=== PATIENT | female | born 1965 | race Caucasian/White ===

== ENCOUNTER 2016-11-21 21:30 | Emergency (ER) | payer MEDICARE, BC ==
[2016-11-21 22:10] LABS: ABSOLUTE BASOPHILS # (AUTO) 0.1 10^3/uL (0.0-0.2); ABSOLUTE EOSINOPHILS # (AUTO) 0.1 10^3/uL (0.0-0.6); ABSOLUTE LYMPHOCYTES (AUTO) 2.2 10^3/uL (0.5-4.7); ABSOLUTE NEUT (AUTO) 3.6 10^3/uL (1.7-8.2); BASOPHILS % (AUTO) 0.9 % (0-2); EOSINOPHILS % (AUTO) 1.9 % (0-6); HEMATOCRIT 40.7 % (36.0-47.0); HEMOGLOBIN 13.8 g/dL (12.0-15.5); HGB HCT DIFFERENCE 0.7; LYMPHOCYTES % (AUTO) 31.4 % (13-45); MEAN CORPUSCULAR HEMOGLOBIN 30.1 pg (27.0-33.4); MEAN CORPUSCULAR HGB CONC 33.8 g/dL (32.0-36.0); MEAN CORPUSCULAR VOLUME 89 fl (80-97); MONOCYTES % (AUTO) 13.9 % (3-13); RED BLOOD COUNT 4.57 10^6/uL (3.72-5.28); RED CELL DISTRIBUTION WIDTH 12.7 % (11.5-14.0); SEGMENTED NEUTROPHILS % (AUTO) 51.9 % (42-78)
[2016-11-21] MEDS ORDERED: METOCLOPRAMIDE HCL INJ/PF 10 MG/2 ML SDV IV ONE (22:11)
[2016-11-21] MEDS ORDERED: NORMAL SALINE 1000 ML 1,000 ML IV ONE (22:12)
[2016-11-21] MEDS ORDERED: DIAZEPAM INJ 10 MG/2 ML DISP.SYRIN IV ONE (22:12)
[2016-11-21 22:22] LABS: AMORPHOUS SEDIMENT,URINE TRACE /HPF; APPEARANCE,URINE CLOUDY; BILIRUBIN,URINE NEGATIVE (NEGATIVE); GLUCOSE, URINE NEGATIVE (NEGATIVE); KETONES,URINE TRACE mg/dL (NEGATIVE); LEUKOCYTE ESTERASE,URINE NEGATIVE (NEGATIVE); NITRITE,URINE NEGATIVE (NEGATIVE); PROTEIN,URINE NEGATIVE (NEGATIVE); URINE SPECIFIC GRAVITY 1.016; UROBILINOGEN,URINE NEGATIVE mg/dL (<2.0)
[2016-11-21 22:33] LABS: ALANINE AMINOTRANSFERASE 19 U/L (9-52); ALBUMIN 3.7 g/dL (3.5-5.0); ALKALINE PHOSPHATASE 69 U/L (38-126); ANION GAP 12 (5-19); ASPARTATE AMINO TRANSFERASE 26 U/L (14-36); BILIRUBIN,TOTAL 0.3 mg/dL (0.2-1.3); BLOOD UREA NITROGEN 17 mg/dL (7-20); CALCIUM 9.3 mg/dL (8.4-10.2); CARBON DIOXIDE 27 mmol/L (22-30); CHLORIDE 100 mmol/L (98-107); CREATININE RESULT 0.76 mg/dL (0.52-1.25); GLUCOSE 139 mg/dL (75-110); LIPASE 38.9 U/L (23-300); POTASSIUM 3.2 mmol/L (3.6-5.0); SODIUM 138.6 mmol/L (137-145); TOTAL PROTEIN 6.4 g/dL (6.3-8.2)
--- NOTE | 2016-11-22 00:02 | ER Document Report ---
ED General - General Chief Complaint: Nausea/Vomiting Stated Complaint: NAUSEA Notes: Patient is 51-year-old female presents with complaint of severe vertigo with nausea and vomiting. Today they want to watch movie. It may relate no illicits available in the front row. She says she feels as if the movie in the front row made vertigo suddenly becomes severe. She states some ice or vomiting. No headache. No chest pain. No shortness of breath. No abdominal pain. No fevers. No recent infections. She has a long history of recurrent vertigo. She has had workup in the past including imaging. TRAVEL OUTSIDE OF THE [place] IN LAST 30 DAYS: No - Related Data Allergies/Adverse Reactions: Penicillins Allergy (Severe, Verified 03/26/16 08:00) Hives prochlorperazine edisylate [From Compazine] Allergy (Severe, Verified 03/26/16 08:00) Hives sulfamethoxazole [From Septra] Allergy (Severe, Verified 03/26/16 08:00) Hives trimethoprim [From Septra] Allergy (Severe, Verified 03/26/16 08:00) Hives Past Medical History - Social History Smoking Status: Never Smoker Frequency of alcohol use: None Drug Abuse: None Family History: Reviewed & Not Pertinent - Past Medical History Cardiac Medical History: Reports: Hx Hypercholesterolemia, Hx Hypertension Denies: Hx Coronary Artery Disease, Hx Heart Attack Pulmonary Medical History: Denies: Hx Asthma, Hx Bronchitis, Hx COPD, Hx Pneumonia Neurological Medical History: Denies: Hx Cerebrovascular Accident, Hx Seizures Musculoskeltal Medical History: Denies Hx Arthritis Psychiatric Medical History: Reports: Hx Depression Past Surgical History: Reports: Hx Hysterectomy, Hx Pacemaker - Immunizations Hx Diphtheria, Pertussis, Tetanus Vaccination: Yes Hx Pneumococcal Vaccination: 11/05/09 Review of Systems - Review of Systems Notes: My Normal Review Basic REVIEW OF SYSTEMS: CONSTITUTIONAL : Denies fever, chills, or sweats. Denies recent illness. EENT: Denies eye, ear, throat, or mouth pain or symptoms. Denies nasal or sinus congestion. CARDIOVASCULAR: Denies chest pain. RESPIRATORY: Denies cough, cold, or chest congestion. Denies shortness of breath, difficulty breathing, or wheezing. GASTROINTESTINAL: Denies abdominal pain. Recurrent vomiting. Denies constipation. Last BM: MUSCULOSKELETAL: Denies neck or back pain or joint pain or swelling. SKIN: Denies rash or skin lesions.. NEUROLOGICAL: Denies altered mental status or loss of consciousness. Denies headache. Denies weakness or paralysis or loss of use of either side. Denies problems with gait or speech. Denies sensory or motor loss. Sensation of room spinning. ALL OTHER SYSTEMS REVIEWED AND NEGATIVE. Physical Exam - Vital signs Vitals: Temp Pulse Resp BP Pulse Ox 97.4 F 64 18 124/71 100 11/21/16 21:54 11/21/16 21:54 11/21/16 21:54 11/21/16 21:54 11/21/16 21:54 - Notes Notes: General Appearance: Well nourished, alert, cooperative, no acute distress, no obvious discomfort. Actively vomiting on initial exam. Vitals: reviewed, See vital signs table. Head: no swelling or tenderness to the head Eyes: PERRL, EOMI, Conjuctiva clear Mouth: No decreasd moisture Neck: Supple, no neck tenderness, No thyromegaly Lungs: No wheezing, No rales, No rhonci, No accessory muscle use, good air exchange bilaterally. Heart: Normal rate, Regular rythm, No murmur, no rub Abdomen: Normal BS, soft, No rigidity, No abdominal tenderness, No guarding, no rebound, no abdominal masses, no organomegaly Extremities: strength 5/5 in all extremities, good pulses in all extremities, no swelling or tenderness in the extremities, no edema. Skin: warm, dry, appropriate color, no rash Neuro: speech clear, oriented x 3, normal affect, responds appropriately to questions. After vomiting controlled with thallium patient is now awake and alert. She's slightly somnolent. Cranial nerves II through XII are intact. She's able move all extremities without difficulty. Course - Vital Signs Vital signs: Temp Pulse Resp BP Pulse Ox 97.4 F 64 19 124/71 77 L 11/21/16 21:54 11/21/16 21:54 11/21/16 23:00 11/21/16 21:54 11/21/16 23:00 - Laboratory Result Diagrams: 11/21/16 21:51 11/21/16 21:51 Laboratory results interpreted by me: 11/21/16 11/21/16 11/21/16 21:51 21:51 21:51 Monocytes % 13.9 H Potassium 3.2 L Glucose 139 H Urine Ketones TRACE H - Transfer of Care Notes: 11/22/16 00:32 Patient's vertigo was still gone. She's feeling much improved. She's awake alert. She's able move her head side to side without causing any vertigo type symptoms. I suspect that her vertigo was triggered by sitting very close to the large previous screen [place]ey[place] to track her eyes side to side quickly to follow movie at the theater. I encourage her to return to ER medially. Has recurrent vertigo not responding to meclizine, vomiting, or she feels unwell. Patient agrees with plan and she will be discharged home. Dictation of this chart was performed using voice recognition software; therefore, there may be some unintended grammatical errors. Discharge - Discharge Clinical Impression: Vertigo Vomiting Qualifiers: Vomiting type: unspecified Vomiting Intractability: non-intractable Nausea presence: without nausea Qualified Code(s): R11.11 - Vomiting without nausea Condition: Good Disposition: HOME, SELF-CARE Additional Instructions: Please take meclizine if you are having recurrent vertigo. Please follow-up with your doctor Wednesday for close reevaluation. Please return to ER immediately if you have recurrent vomiting, intractable spinning type sensation , severe headache, fevers, or if you feel unwell. Prescriptions: Meclizine HCl [Antivert 25 mg Tablet] 25 mg PO TID PRN #21 tablet PRN Reason: Forms: Return to Work
[2016-11-22] MEDS ORDERED: MECLIZINE HCL 25 MG TABLET PO ONE (00:28)
[2016-11-22] MEDS ORDERED: ONDANSETRON ODT 4 MG TAB (6 TAB/DSPK) PO PRN (00:29)
[2016-11-22 00:34] VITALS: BP 102/75
== END 2016-11-22 00:49 | disposition home or self-care (01) ==
LOC: ER 21:30
DX: R42 Dizziness and giddiness (principal); R11.11 Vomiting without nausea
CPT/HCPCS: 94640; 99284; 96361; 96374; 96375; 36415; 83690; 85025; 80053; 81001; J3360; A9270 ×2; J2765; J7030

== ENCOUNTER 2018-11-20 16:47 | Emergency (ER) | payer BC, MEDICARE ==
--- NOTE | 2018-11-20 17:02 | ER Document Report ---
ED Medical Screen (RME) - General Chief Complaint: Eye Pain Stated Complaint: LEFT EYE PAIN, PRESSURE Time Seen by Provider: 11/20/18 17:01 Mode of Arrival: Ambulatory Information source: Patient TRAVEL OUTSIDE OF THE [place] IN LAST 30 DAYS: No - HPI Patient complains to provider of: eye pain; PETIT Onset: Yesterday - pt sent here from for evaluation of L eye pain and blurry vision with PETIT - Related Data Allergies/Adverse Reactions: Penicillins Allergy (Severe, Verified 03/26/16 08:00) Hives prochlorperazine edisylate [From Compazine] Allergy (Severe, Verified 03/26/16 08:00) Hives sulfamethoxazole [From Septra] Allergy (Severe, Verified 03/26/16 08:00) Hives trimethoprim [From Septra] Allergy (Severe, Verified 03/26/16 08:00) Hives Past Medical History - Social History Chew tobacco use (# tins/day): No Frequency of alcohol use: Rare Drug Abuse: None - Past Medical History Cardiac Medical History: Reports: Hx Hypercholesterolemia, Hx Hypertension Denies: Hx Coronary Artery Disease, Hx Heart Attack Pulmonary Medical History: Denies: Hx Asthma, Hx Bronchitis, Hx COPD, Hx Pneumonia Neurological Medical History: Denies: Hx Cerebrovascular Accident, Hx Seizures Renal/ Medical History: Denies: Hx Peritoneal Dialysis Musculoskeltal Medical History: Denies Hx Arthritis Psychiatric Medical History: Reports: Hx Depression Past Surgical History: Reports: Hx Hysterectomy, Hx Pacemaker - Immunizations Hx Diphtheria, Pertussis, Tetanus Vaccination: Yes Physical Exam - Vital signs Vitals: Temp Pulse Resp BP Pulse Ox 98.4 F 63 16 136/91 H 98 11/20/18 16:53 11/20/18 16:53 11/20/18 16:53 11/20/18 16:53 11/20/18 16:53 Course - Vital Signs Vital signs: Temp Pulse Resp BP Pulse Ox 98.4 F 63 16 136/91 H 98 11/20/18 16:53 11/20/18 16:53 11/20/18 16:53 11/20/18 16:53 11/20/18 16:53
[2018-11-20 17:38] LABS: ABSOLUTE EOSINOPHILS # (AUTO) 0.2 10^3/uL (0.0-0.6); ABSOLUTE LYMPHOCYTES (AUTO) 1.3 10^3/uL (0.5-4.7); ABSOLUTE MONOCYTES (AUTO) 0.6 10^3/uL (0.1-1.4); ABSOLUTE NEUT (AUTO) 3.3 10^3/uL (1.7-8.2); BASOPHILS % (AUTO) 0.7 % (0-2); HEMATOCRIT 42.6 % (36.0-47.0); HEMOGLOBIN 14.7 g/dL (12.0-15.5); LYMPHOCYTES % (AUTO) 23.7 % (13-45); MEAN CORPUSCULAR HEMOGLOBIN 30.5 pg (27.0-33.4); MEAN CORPUSCULAR HGB CONC 34.5 g/dL (32.0-36.0); MEAN CORPUSCULAR VOLUME 88 fl (80-97); MONOCYTES % (AUTO) 11.4 % (3-13); PLATELET COUNT 227 10^3/uL (150-450); RED BLOOD COUNT 4.82 10^6/uL (3.72-5.28); RED CELL DISTRIBUTION WIDTH 12.7 % (11.5-14.0); SEGMENTED NEUTROPHILS % (AUTO) 61.2 % (42-78); TOTAL CELLS COUNTED % (AUTO) 100 %; WHITE BLOOD COUNT 5.5 10^3/uL (4.0-10.5)
[2018-11-20 17:51] LABS: ALANINE AMINOTRANSFERASE 28 U/L (9-52); ALBUMIN 4.4 g/dL (3.5-5.0); ALKALINE PHOSPHATASE 74 U/L (38-126); ANION GAP 7 (5-19); ASPARTATE AMINO TRANSFERASE 22 U/L (14-36); BILIRUBIN,DIRECT 0.2 mg/dL (0.0-0.4); BILIRUBIN,TOTAL 0.3 mg/dL (0.2-1.3); BLOOD UREA NITROGEN 13 mg/dL (7-20); CALCIUM 9.4 mg/dL (8.4-10.2); CARBON DIOXIDE 34 mmol/L (22-30); CHLORIDE 102 mmol/L (98-107); GLUCOSE 111 mg/dL (75-110); POTASSIUM 4.4 mmol/L (3.6-5.0)
--- NOTE | 2018-11-20 17:52 | ER Document Report ---
ED General - General Chief Complaint: Eye Pain Stated Complaint: LEFT EYE PAIN, PRESSURE Time Seen by Provider: 11/20/18 17:01 Mode of Arrival: Ambulatory Notes: Patient is a 53-year-old female that presents to the emergency department for chief complaint of left eye pain and swelling. Patient states that she first n oticed this earlier today, has taken Motrin and it was helping, but now the pain is an 8 out of 10, with associated headache, she is had photophobia as well. She is had some tearing, and redness in that eye. She denies history of glaucoma, denies wearing contacts or glasses. She states her vision has been blurry, but denies loss of vision. She denies pain with extraocular eye movements. No injury that she is aware of. Denies any fevers, chills, night sweats she has had associated nausea but no vomiting. Past Medical History: Sick sinus syndrome, status post pacemaker, hypertension, hyperlipidemia Past Surgical History: Pacemaker placement Social History: Denies current tobacco, alcohol or drug use. Family History: Reviewed and noncontributory for presenting illness Allergies: Reviewed, see documented allergy list. REVIEW OF SYSTEMS: Other than noted above, the 12 point review of systems was reviewed with the patient and were negative, all pertinent findings are included in the HPI. PHYSICAL EXAMINATION: Vital signs reviewed, nursing noted reviewed. GENERAL: Patient appears uncomfortable on exam, but is otherwise well-developed appearing HEAD: Atraumatic, normocephalic. EYES: extraocular movements intact, sclera anicteric. PERRLA, moderate conjunctival injection of the left eye, pupil appears normal, fluorescein dye exam negative for corneal abrasion, no foreign body appreciated. Intraocular pressures were measured bilaterally, and were 21 bilaterally. There is noted to be mild preseptal swelling and edema. And erythema, no significant discharge noted from the eye. Bilateral ocular ultrasound performed and were negative for any signs of retinal detachment, the optic nerve measured less than 5 mm bilaterally. ENT: nares patent, oropharynx clear without exudates. Moist mucous membranes. NECK: Normal range of motion, supple without lymphadenopathy LUNGS: Breath sounds clear to auscultation bilaterally and equal. No wheezes rales or rhonchi. HEART: Regular rate and rhythm without murmurs ABDOMEN: Soft, nontender, normoactive bowel sounds. No rebound, guarding, or rigidity. No masses appreciated. EXTREMITIES: Nontender, good range of motion, no pitting or edema. NEUROLOGICAL: No focal neurological deficits. Moves all extremities spon taneously Motor and sensory grossly intact on exam. PSYCH: Normal mood, normal affect. SKIN: Warm, Dry, normal turgor, no rashes or lesions noted on exposed skin TRAVEL OUTSIDE OF THE [place] IN LAST 30 DAYS: No - Related Data Allergies/Adverse Reactions: Penicillins Allergy (Severe, Verified 03/26/16 08:00) Hives prochlorperazine edisylate [From Compazine] Allergy (Severe, Verified 03/26/16 08:00) Hives sulfamethoxazole [From Septra] Allergy (Severe, Verified 03/26/16 08:00) Hives trimethoprim [From Septra] Allergy (Severe, Verified 03/26/16 08:00) Hives Past Medical History - General Information source: Patient - Social History Smoking Status: Never Smoker Chew tobacco use (# tins/day): No Frequency of alcohol use: Rare Drug Abuse: None Family History: Reviewed & Not Pertinent Patient has suicidal ideation: No Patient has homicidal ideation: No - Past Medical History Cardiac Medical History: Reports: Hx Hypercholesterolemia, Hx Hypertension Denies: Hx Coronary Artery Disease, Hx Heart Attack Pulmonary Medical History: Denies: Hx Asthma, Hx Bronchitis, Hx COPD, Hx Pneumonia Neurological Medical History: Denies: Hx Cerebrovascular Accident, Hx Seizures Renal/ Medical History: Denies: Hx Peritoneal Dialysis Musculoskeletal Medical History: Denies Hx Arthritis Psychiatric Medical History: Reports: Hx Depression Past Surgical History: Reports: Hx Cardiac Surgery - pacemaker, Hx Hysterectomy, Hx Pacemaker - Immunizations Hx Diphtheria, Pertussis, Tetanus Vaccination: Yes Hx Pneumococcal Vaccination: 11/05/09 Physical Exam - Vital signs Vitals: Temp Pulse Resp BP Pulse Ox 98.4 F 63 16 136/91 H 98 11/20/18 16:53 11/20/18 16:53 11/20/18 16:53 11/20/18 16:53 11/20/18 16:53 Course - Re-evaluation Re-evalutation: Patient seen and examined vital signs reviewed. Laboratory data and imaging were ordered as appropriate for the patient's presenting symptoms and complaint, with consideration of any critical or life threatening conditions that may be associated with their obtained history and exam as noted above. Patient was treated with IV Toradol and Zofran for her pain and nausea, she did not get significant relief with topical tetracaine Results were reviewed when available and demonstrated normal intraocular pressures, normal bedside ocular ultrasound, no leukocytosis, ESR ordered by triage provider was normal, low suspicion for giant cell arteritis, patient did have preseptal swelling, conjunctival injection, most had a differential was preseptal cellulitis, although patient was complaining of significant pain, th erefore ocular ultrasound with contrast was obtained, and appeared negative for signs of orbital cellulitis, she did not have pain with extraocular eye movements on my exam. The patient was re-evaluated and was improved after treatment, she was given a dose of IV clindamycin 600 mg, will be started on oral clindamycin 300 mg 4 times daily for 10 days. Evaluation was most consistent with preseptal cellulitis of the left eye. Results were discussed with the patient at this point, after careful consideration I feel that that patient can be discharged from the emergency department, the patient was educated treatments and reasons to return to the emergency department based on their presumed diagnosis as noted above, they were advised to followup with a primary care physician in 2-3 days. Patient was agreeable to plan of care. *Note is created using voice recognition software and may contain spelling, syntax or grammatical errors. Laboratory 11/20/18 11/20/18 17:21 17:21 WBC 5.5 RBC 4.82 Hgb 14.7 Hct 42.6 MCV 88 MCH 30.5 MCHC 34.5 RDW 12.7 Plt Count 227 Seg Neutrophils % 61.2 Lymphocytes % 23.7 Monocytes % 11.4 Eosinophils % 3.0 Basophils % 0.7 Absolute Neutrophils 3.3 Absolute Lymphocytes 1.3 Absolute Monocytes 0.6 Absolute Eosinophils 0.2 Absolute Basophils 0.0 ESR 9 Sodium 143.0 Potassium 4.4 Chloride 102 Carbon Dioxide 34 H Anion Gap 7 BUN 13 Creatinine 0.69 Est GFR ( Amer) > 60 Est GFR (Non-Af Amer) > 60 Glucose 111 H Calcium 9.4 Total Bilirubin 0.3 Direct Bilirubin 0.2 Neonat Total Bilirubin Not Reportable Neonat Direct Bilirubin Not Reportable Neonat Indirect Bili Not Reportable AST 22 ALT 28 Alkaline Phosphatase 74 Total Protein 7.[address] 11/20/18 18:20 IMPRESSION: Symmetric intact globes and retroorbital soft tissues.Minimal anterior left preseptal edema. No abnormal enhancement or fluid collection. - Vital Signs Vital signs: Temp Pulse Resp BP Pulse Ox 97.9 F 109 H 16 110/70 93 11/20/18 19:26 11/20/18 19:26 11/20/18 16:53 11/20/18 19:26 11/20/18 19:26 - Laboratory Result Diagrams: 11/20/18 17:21 11/20/18 17:21 Laboratory results interpreted by me: 11/20/18 17:21 Carbon Dioxide 34 H Glucose 111 H Discharge - Discharge Clinical Impression: Preseptal cellulitis of left eye Condition: Stable Disposition: HOME, SELF-CARE Instructions: Cellulitis ([facility]) Additional Instructions: Please return to the emergency department if you have any worsening, or concern of your symptoms. Please return to the emergency department if you develop chest pain, difficulty breathing, severe abdominal pain, or ongoing vomiting. Please follow-up with your primary care physician in 2-3 days and any other recommended physicians. If prescribed, take all medications as directed. If you have any questions or concerns do not hesitate to return the emergency department for evaluation. Please take the complete course of antibiotics. Prescriptions: RX: Clindamycin HCl 300 mg PO QID #40 capsule Naproxen [Naprosyn] 500 mg PO BID PRN #30 tablet PRN Reason: eye pain Referrals: SHAN AMADOR MD [Primary Care Provider] - Follow up as needed
[2018-11-20] MEDS ORDERED: TETRACAINE HCL 0.5% OPH SOLN 4 ML OS ONE (17:56)
[2018-11-20] MEDS ORDERED: ONDANSETRON 4 MG TAB.RAPDIS PO ONE (17:57)
[2018-11-20 18:14] LABS: ERYTHROCYTE SEDIMENTATION RATE 9 mm/hr (0-30)
[2018-11-20] MEDS: KETOROLAC TROMETHAMINE 60 MG/2 ML SDV IM ONE ×2 (18:14→18:44)
[2018-11-20] MEDS ORDERED: KETOROLAC TROMETHAMINE INJ/PF 30 MG/1 ML SDV IV ONE (18:21)
[2018-11-20] MEDS ORDERED: METOCLOPRAMIDE HCL INJ/PF 10 MG/2 ML SDV IV ONE (18:34)
--- NOTE | 2018-11-20 19:14 | RADIOLOGY REPORT (SQ) ---
EXAM DESCRIPTION: CT ORBIT/SELLA WITH COMPLETED DATE/TIME: 11/20/2018 6:59 pm REASON FOR STUDY: injected and painful left eye COMPARISON: None. TECHNIQUE: Post contrast images through the orbits windowed for bone and soft tissue. Additional co leonie and sagittal reconstructed images reviewed. All images stored on PACS. All CT scanners at this facility use dose modulation, iterative reconstruction, and/or weight based d osing when appropriate to reduce radiation dose to as low as reasonably achievable (ALARA). [facility]: Dose Right [facility]: CareDose [facility]: Dose Right [facility]: Teradose 4D [facility]: BitComet CONTRAST TYPE AND DOSE: contrast/concentration: Isovue 350.00 mg/ml; Total Contrast Delivered: 50.0 ml; Total Saline Delivered: 50.6 ml RENAL FUNCTION: GFR > 60. RADIATION DOSE: CT Rad equipment meets quality standard of care and radiation dose reduction techniq ues were employed. CTDIvol: 30.4 mGy. DLP: 369 mGy-cm. . LIMITATIONS: None. FINDINGS: FACIAL BONES: No fracture or bone lesion. ORBITS: Intact. No fracture. Symmetric intact globes and retroorbital soft tissues. PARANASAL SINUSES: Clear. No significant mucosal thickening, mass or fluid. SOFT TISSUES: Minimal anterior left preseptal edema. No abnormal enhancement. No CT evidence of acut e sinusitis. INFERIOR BRAIN: Limited view. No acute findings. OTHER: No other significant finding. IMPRESSION: Symmetric intact globes and retroorbital soft tissues.Minimal anterior left preseptal ed brooke. No abnormal enhancement or fluid collection. TECHNICAL DOCUMENTATION: JOB ID: [id number] Quality ID # [id number]: Final reports with documentation of one or more dose reduction techniques (e.g., Au tomated exposure control, adjustment of the mA and/or kV according to patient size, use of iterative reconstruction technique) 2010 [employer]- All Rights Reserved Reading location - IP/workstation name: [email or web address]
[2018-11-20] MEDS ORDERED: DOXYCYCLINE HYCLATE INJ 100 MG VIAL IV ONE (19:26)
[2018-11-20] MEDS ORDERED: CLINDAMYCIN 600 MG/D5W RTU 600 MG/50 ML RTUPB IV ONE ×2 (20:38→20:43)
[2018-11-20] MEDS ORDERED: HYDROMORPHONE HCL INJ/PF 2 MG/ML AMPULE IV ONE (20:45)
[2018-11-20] MEDS ORDERED: ONDANSETRON HCL INJ/PF 4 MG/2 ML SDV IV ONE (20:45)
[2018-11-20 22:29] VITALS: BP 121/66
[2018-11-21] MEDS ORDERED: CLINDAMYCIN PHOSPHATE 600 MG in DEXTROSE 5%-WATER 100 ML IV ONE (19:38)
== END 2018-11-20 22:15 | disposition home or self-care (01) ==
LOC: ER 16:47
DX: L03.213 Periorbital cellulitis (principal); H57.12 Ocular pain, left eye; I10 Essential (primary) hypertension
CPT/HCPCS: 36415; 85025; 85652; 80053; 70481; A9270; J1885; J2765; J1170; J2405; J3490; S0119

== ENCOUNTER → 2020-09-10 | Outpatient (CLI) | payer MEDICARE ==
--- NOTE | 2020-09-10 12:24 | ER [facility] ASSESSMENT REPORT ---
Intake - In the Last 14 days Have you traveled outside [place]?: No Have you been in close contact with someone CONFIRMED: Yes - Symptoms Subjective Fever(Ramona feverish): No Chills: No Muscule Aches: Yes Runny Nose: No Sore Throat: No Cough (New or worsening chronic cough): Yes Shortness of breath: No Nausea or Vomiting: No Headache: No Abdominal Pain: No Diarrhea(3 or more loose stools in last 24 hours): No - Do you have any of the following Chronic lung disease: Asthma or emphysema or COPD: No Cystic Fibrosis: No Diabetes: No High Blood Pressure: Yes Cardiovascular Disease: Yes Chronic Kidney Disease: No Chronic Liver Disease: No Chronic blood disorder like Sickle Cell Disease: No Weak immune system due to disease or medication: No Neurologic condition that limits movement: No Developmental delay - Moderate to Severe: No Recent (within past 2 weeks) or current : No Morbid Obesity (>100 pounds over ideal weight): No - Objective Temperature: 97.2 F Pulse Rate: 75 Respiratory Rate: 16 Blood Pressure: 100/53 O2 Sat by Pulse Oximetry: 95 Objective: Given above, testing performed: If Testing Performed: Test Specimen Type Sent to General - General Information source: Patient Notes: Patient presents to the [facility] for screening for the coronavirus. Patient reports sinus congestion symptoms recently. - Related Data Allergies/Adverse Reactions: Penicillins Allergy (Severe, Verified 03/26/16 08:00) Hives prochlorperazine edisylate [From Compazine] Allergy (Severe, Verified 03/26/16 08:00) Hives sulfamethoxazole [From Septra] Allergy (Severe, Verified 03/26/16 08:00) Hives trimethoprim [From Septra] Allergy (Severe, Verified 03/26/16 08:00) Hives Past Medical History - General Information source: Patient - Social History Smoking Status: Never Smoker Family History: Reviewed & Not Pertinent - Past Medical History Cardiac Medical History: Reports: Hx Hypertension Denies: Hx Coronary Artery Disease, Hx Heart Attack Pulmonary Medical History: Denies: Hx Asthma, Hx Bronchitis, Hx COPD, Hx Pneumonia Neurological Medical History: Denies: Hx Cerebrovascular Accident, Hx Seizures Renal/ Medical History: Denies: Hx Peritoneal Dialysis Musculoskeletal Medical History: Denies Hx Arthritis Psychiatric Medical History: Reports: Hx Depression Past Surgical History: Reports: Hx Cardiac Surgery - pacemaker, Hx Hysterectomy, Hx Pacemaker Physical Exam - Notes Notes: The patient was evaluated during the global Covid 19 pandemic, and that diagnosis was suspected/considered upon their initial presentation. Their evaluation, treatment and testing was consistent with current guidelines for patients who present with complaints or symptoms that may be related to Covid 19. Full physical exam could not be performed due to covid 19 isolation protocols. Constitutional: Nontoxic appearance, no acute distress Eyes: Nonicteric, extraocular movements intact, sclera clear ENT: Clear rhinorrhea, posterior pharynx clear Cardiovascular: Heart rate and rhythm regular, breath sounds clear bilaterally, no JVD Respiratory: Nonlabored breathing, no use of accessory muscles, no tachypnea Gastrointestinal: Abdomen not distended Muculoskeletal: Moves all extremities well Skin: Normal color Neuro: Awake alert oriented, normal speech Psych: Normal mood and affect Diagnostic Results Laboratory Results: Patient presents with upper respiratory symptoms worrisome for possible Covid 19. Patient does not have emergency worrying symptoms such as difficulty yvon athing, shortness of breath, chest pain, pressure, confusion or cyanosis. Patient appears suitable for discharge as vital signs are stable and patient is nontoxic in appearance. Good return precautions have been discussed with patient, patient verbalized understanding and is agreeable with discharge plan of care at this time. Patient Education/Counseling Counseling/Education: Patient was provided with discharge information including: As a person under investigation for Covid 19, the [place] department of Health and Human Services, division of public health advises you to adhere to the following guidance until your test results are reported to you. If your test result is positive, you will receive additional information from your provider and your local health department at that time. Remain at home until you are cleared by the health provider or public health authorities. Keep a log of visitors to your home, notify any visitors to your home of your isolation status. If you plan to move to a new address or leave the county, notify the local health department in your County. Call your doctor or seek care if you have an urgent medical need. Before seeking medical care, call ahead to get instructions from the provider before arriving at the medical office clinic or hospital. Notify them that you are being tested for the virus that causes Covid 19 so that arrangements can be made, as necessary, to prevent transmission to others in the healthcare setting. Next, notify the local health department in your county. If a medical emergency arises and you need to call 911, inform the first responders that you are being tested for the virus that causes Covid 19. Next, notify the local health department in your county. [facility] Discharge - Discharge Clinical Impression: Encounter for screening laboratory testing for COVID-19 virus Condition: Stable Disposition: Home; Selfcare
[2020-09-10 12:43] VITALS: BP 100/53
== END ==
LOC: RDC 11:53
PROVIDERS: ATTEND Nurse Practitioner Family
DX: U07.1 COVID-19 (principal)
CPT/HCPCS: 99201; U0003; G0463; C9803; 87635; 99211